=== PATIENT | male | born 1965 | race Asian ===

== ENCOUNTER → 2024-02-05 15:30 | Outpatient (REF) | payer MEDICAID, SELFPAY ==
[2024-02-05 12:13] LABS: % Basophils 0.9 % (0-2); % Eosinophils 8.2 % (0-6); % Immature Granulocytes 0.2 % (0-0.5); % Lymphocytes 21.5 % (20.5-51.1); % Monocytes 5.9 % (1.7-9.3); % Neutrophils 63.3 % (42.2-75.2); Absolute Basophils 0.1 10^3/uL (0-0.2); Absolute Eosinophils 0.5 10^3/uL (0-0.7); Absolute Lymphocytes 1.4 10^3/uL (1.2-3.4); Absolute Monocytes 0.4 10^3/uL (0.1-0.6); Absolute Neutrophils 4.2 10^3/uL (1.4-6.5); Hematocrit 21.7 % (39.0-52.0); Hemoglobin 7.5 g/dL (13.0-18.0); Mean Corp Hgb Conc. 34.6 g/dL (33.0-37.0); Mean Corpuscular Hgb 29.2 pg (27.0-31.0); Mean Corpuscular Volume 84.4 fL (80.0-94.0); Mean Platelet Volume 9.4 fL (7.4-10.4); Platelet Count 251 10^3/uL (130-400); Red Blood Cell Count 2.57 10^6/uL (4.70-6.10); Red Cell Dist. Width 13.8 % (11.5-14.5); White Blood Cell Count 6.6 10^3/uL (4.8-10.8)
== END ==
LOC: OIDL 15:30
PROVIDERS: ATTENDING PHYSICIAN Internal Medicine Hematology & Oncology
DX: D63.1 Anemia in chronic kidney disease (principal)
CPT/HCPCS: 85025

== ENCOUNTER 2024-12-11 14:04 | Emergency (ER) | payer OTHER, SELFPAY ==
[2024-12-11] VITALS (7 sets, daily range): BP systolic 122–140; BP diastolic 59–74
[2024-12-11 18:02] LABS: Hematocrit 23.5 % (39.0-52.0); Hemoglobin 7.9 g/dL (13.0-18.0); Mean Corp Hgb Conc. 33.6 g/dL (33.0-37.0); Mean Corpuscular Volume 90.7 fL (80.0-94.0); Nucleated Red Blood Cells % 0 % (-); Platelet Count 170 10^3/uL (130-400); Red Cell Dist. Width 11.9 % (11.5-14.5)
[2024-12-11 18:19] LABS: ALT (SGPT) 16 U/L (0-50); AST (SGOT) 17 U/L (17-59); Albumin 3.6 g/dl (3.5-5.0); Alkaline Phosphatase 83 U/L (38-126); Blood Urea Nitrogen 100 mg/dl (9-20); Calcium 7.6 mg/dl (8.4-10.2); Carbon Dioxide 28 mmol/L (22-30); Chloride 100 mmol/L (98-107); Glucose 255 mg/dl (70-99); Potassium 4.8 mmol/L (3.5-5.1); Sodium 137 mmol/L (135-145); Total Protein 6.3 g/dl (6.3-8.2); eGFR 8.34
--- NOTE | 2024-12-11 20:22 | ED.GENMED ---
History of Present Illness
General
Chief Complaint: Abnormal Lab Value
Source: patient
Exam Limitations: none
Time Seen by Provider: 12/11/24 17:16
History of Present Illness
History of Present Illness:
59-year-old male presents from [facility] for initiation of dialysis treatment. Patient limited historian. No other history obtained from the patient. He does deny any pain
Phy Exam
Physical Exam
Physical Exam:
General: Well-appearing male no acute respiratory distress
HEENT: Normal cephalic atraumatic
Extremities: AV graft noted left upper extremity with palpable thrill surgical incisions appear well with intact skin adhesiveNo edema in the legs
Course
Orders/Labs/Results
Orders:
Orders
12/11/24 17:57
Complete Blood Count/With Diff Urgent
Comprehensive Metabolic Panel Urgent
Abnormal Lab Results
12/11/24
17:57
RBC 2.59 L 10^6/uL
(4.70-6.10)
Hgb 7.9 L g/dL
(13.0-18.0)
Hct 23.5 L %
(39.0-52.0)
Eosinophils % 8.0 H %
(0-6)
BUN 100 H mg/dl
(9-20)
Creatinine 7.0 H* mg/dL
(0.7-1.3)
Glucose 255 H mg/dl
(70-99)
Calcium 7.6 L mg/dl
(8.4-10.2)
Total Bilirubin 0.1 L mg/dl
(0.2-1.3)
12/11/24 17:57
12/11/24 17:57
Vital Signs
Initial and Last Documented VS:
Initial Vital Signs
Temp Pulse Resp BP Pulse Ox
98.3 F 79 18 123/59 100
12/11/24 14:09 12/11/24 14:09 12/11/24 14:09 12/11/24 14:09 12/11/24 14:09
Last Documented Vital Signs
Temp Pulse Resp BP Pulse Ox
98.3 F 80 15 134/65 95
12/11/24 14:09 12/11/24 18:30 12/11/24 18:30 12/11/24 18:00 12/11/24 18:30
MDM/Problems Addressed
Differential Diagnosis Includes:
Patient sent here for initiation of hemodialysis. He has never been here before. I discussed with nephrology. Hemodialysis is currently not available as the schedule is for and the patient will not able to have HD this weekend.
Reached out to the patient's primary p d driver
*Pulse Oximetry
SaO2: 95
Oxygen Mode of Delivery: Room air
Patient hypoxic: no
*Critical Care Note
Total Time (30-74mins, 75-104mins- exclusive of procedures): Not Applicable
Update Note
Update Note:
Multiple phone calls between the patient's mother, sister two [facility] facilities ([place] and [facility] [place]) and the patient's primary p d driver as well as a discussion with our p d driver here occurred. Patient sent here from [facility]
[place] as they are unable to provide the first hemodialysis service. The patient is stable here with stable vital signs. There is no hemodialysis availability for this patient over the next 2 days in the weekend in general. Due to
unavailability of service I spoke with the patient's primary p d driver who has privileges at [facility]. I also spoke to transfer center at [facility] and ultimately the accepting physician, Dr. Santos who has accepted the
patient. A bed is available. I obtained transfer consent via telephone by the patient's sister Ana.
ED Attending Note
-
Portions of this chart may have been created with voice recognition software.� Occasional wrong word or��sound alike� substitutions may have occurred due to the inherent limitations of voice recognition software.
Discharge Plan
Departure
Patient Disposition: Acute Care Hospital
Date of Disposition: 12/11/24
Time of Disposition: 20:28
Discharge Problem:
Acute renal failure
Referrals:
Sagrario Nagel MD [Family Provider]
Hospital Transfer
Other hospital: [facility] [place]
I certify that the patient requires transfer: Yes
Discussed case with accepting physician: Danielle
Reason for transfer: availability of service
Interventions
Interventions:
*Risk Screen - Suicide Last Done: 12/11/24 14:14
*General Assessment Last Done: 12/11/24 18:20
*Neglect/Abuse Screening Last Done: 12/11/24 18:20
*ED COVID-19 Vaccine History Last Done: 12/11/24 18:20
*ED Influenza Vaccine History Last Done: 12/11/24 18:20
Discharge Date and Time
Print Language: NAURUAN
== END 2024-12-11 22:40 | disposition short-term general hospital (02) ==
LOC: EMR 14:04
PROVIDERS: Physician Assistant; EMERGENCY PHYSICIAN Emergency Medicine; FAMILY PHYSICIAN Internal Medicine
DX: N17.9 Acute kidney failure, unspecified (principal); Z99.2 Dependence on renal dialysis
CPT/HCPCS: 99283; 80053; 85025

== ENCOUNTER 2024-12-18 23:22 | Inpatient (IN) | payer OTHER, SELFPAY ==
[2024-12-18 21:39] VITALS: BP 147/71
[2024-12-18 21:59] VITALS: BMI 23.7
--- NOTE | 2024-12-18 22:11 | ED.GENMED ---
History of Present Illness
General
Chief Complaint: Abnormal Lab Value
Source: patient, ambulance crew and skilled nursing records
Exam Limitations: none
Time Seen by Provider: 12/18/24 22:06
Nursing documentation reviewed up to this point in time: agreed with
History of Present Illness
History of Present Illness:
59-year-old male with history of HTN, HLD, IDDM, anemia, CHF, ESRD on dialysis presents from [facility] for low hemoglobin.
Pt denies CP, SOB, abdominal pain, dizziness.
Past History
Past History
ED Past Medical History: CHF, GERD, HTN, Hypercholesterolemia, NIDDM, Renal failure (ESRD on dialysis -W-) and Other (Anemia)
ED Past Surgical History: Other (Dialysis catheter left upper)
Review of Systems
Review of Systems
Allergies reviewed?: Yes
All Other Systems: ROS reviewed and negative except as documented in HPI and ROS
Constitutional: Denies fever or fatigue
Respiratory: Denies trouble breathing
Cardiac: Denies chest pain
ABD/GI: Denies abdominal pain, nausea, vomiting, diarrhea or anorexia
Musculoskeletal: Denies edema
Skin: Reports other (Dialysis AV fistula left upper arm)
Neurological: Denies dizzy
Phy Exam
Physical Exam
Physical Exam:
GENERAL: No acute distress. A&Ox3.
CONSTITUTIONAL: Afebrile.
EYES: clear, conjunctivae normal
ENMT: moist mucus membranes, Pharynx nl
RESPIRATORY: Regular respirations, nonlabored, lungs clear.
CARDIOVASCULAR: Regular rate and rhythm, + murmur, no rubs.
GI: Soft, nontender, normal BS
MUSCULOSKELETAL: Moves with ease. Well perfused.
SKIN: Warm, dry, AV graft left upper extremity
PSYCH: Normal mood and affect. Well kept, interactive and appropriate
NEUROLOGIC: Awake, alert and oriented. No focal neurological deficits
Course
Orders/Labs/Results
Orders:
Orders
12/18/24 21:49
Type+Screen Urgent
Complete Blood Count/With Diff Urgent
Comprehensive Metabolic Panel Urgent
Folate Urgent
Iron Urgent
Total Iron Binding Urgent
Comment: ADD ON
Vitamin B12 Urgent
Comment: ADD ON
12/18/24 22:36
* Blood Bank Products Routine
Blood Bank Products: *Packed RBC Leuko (PRBC's
Quantity: 1
Transfuse Today: Yes
Reason: Anemia
IV Insert/Care/Rem.- Treatment PRN
12/18/24 23:08
Admit/Transfer Patient As Directed
Co-Sign Provider:
Level of Care: Inpatient admission
Assign to:: Medical/Surgical
Physician / Group: billie
Diagnosis: anemia
Reason for Hospitalization: anemia
Expected length of stay greater than two midnights?: Yes
ELOS- Estimated Length of Stay in days: 3
I certify the patient meets the requirements for IP care: Yes
PRN Pain Medication Management As Directed
May give lesser potent ordered pain med per pt: Yes
preference::
Protocol:: Medication orders for pain may be administered in a
manner that supports deferring to patient preference
when the pt is:
- Requesting an ordered lesser potent pain medication.
Least to most potent pain medications are defined
as: acetaminophen < NSAID < tramadol < opioids
(morphine, oxycodone, hydromorphone).
- Requesting a lesser dose of the same medication IF
ORDERED.
- Requesting a less intrusive route of administration
if both routes are prescribed by the provider (PO <
IV).
12/18/24 23:10
Code Status As Directed
Resuscitation Status: Full Code
12/18/24 23:13
Add On- LAB Stat
Tests Added?: iron, b12, TIBC,folate
11/01/25 02:25
Acetaminophen [Tylenol] 650 mg PO Q4HPRN PRN
Bisacodyl [Dulcolax] 10 mg RECTAL [id number] PRN
Dextrose 50%-Water [Dextrose 50% Syringe] 12.5 grams IV [id number] PRN
Docusate W/Senna [Senokot-S] 1 tablet PO BIDPRN PRN
Glucagon [GlucaGen] 1 mg IM PRN PRN
Polyethylene Glycol Powder [Miralax] 17 grams PO DAILYPRN PRN
12/19/24 02:25
Consult Notification Routine
Specialty to Notify: Nephrology
NEPHROLOGY CONSULT Routine
Consulting Provider: Rex Virk
Was physician already notified: No
Reason for consult: ESRD on Dialysis
Activity As Directed
Activity Level: As Tolerated
Bedside Glucose Monitoring As Directed
Frequency: AC&HS
Additional Instructions:: Change to q6h if pt on TPN, tube feeding or not eating
Intake/ Output As Directed
Frequency: Per unit guidelines
Pneumatic Compression Sleeves As Directed
Type: Knee high
Vital Signs As Directed
Frequency: Per unit guidelines
Weight As Directed
Frequency: Daily
DX Deep Vein Thrombosis Video Routine
12/19/24 Breakfast
2000 calorie (17 carb) Diabetic
Basic Metabolic Panel IN AM
Complete Blood Count/No Diff IN AM
Glycohemoglobin (HgbA1c) IN AM
12/19/24 07:30
Insulin Aspart Corrective Low [Novolog Flexpen-Low Resistance] See Protocol SC AC
12/19/24 08:00
Aspirin Chewable [Low Strength Aspirin] 81 mg PO DAILY
Atorvastatin [Lipitor] 40 mg PO DAILY
Carvedilol [Coreg] 25 mg PO BID
Clonidine [Catapres] 0.2 mg PO DAILY
Clopidogrel Bisulfate [Plavix] 75 mg PO DAILY
Dapagliflozin [Farxiga] 10 mg PO DAILY
FOLic ACID [Folvite] 1 mg PO DAILY
Ferrous Sulfate [Feosol] 325 mg PO DAILY
Furosemide [Lasix] 20 mg PO DAILY
Losartan [Cozaar] 25 mg PO DAILY
NIFEdipine EXTENDED RELEASE [Procardia Xl (Extended Release)] 60 mg PO BID
Pantoprazole [Protonix] 40 mg PO DAILY
Sodium Bicarbonate 1,350 mg PO BID
12/20/24 06:00
Basic Metabolic Panel IN AM
Complete Blood Count/No Diff IN AM
12/21/24 06:00
Basic Metabolic Panel IN AM
Complete Blood Count/No Diff IN AM
12/22/24 06:00
Basic Metabolic Panel IN AM
Complete Blood Count/No Diff IN AM
Abnormal Lab Results
12/18/24
21:49
RBC 2.19 L 10^6/uL
(4.70-6.10)
Hgb 6.7 L* g/dL
(13.0-18.0)
Hct 19.5 L* %
(39.0-52.0)
Eosinophils % 6.8 H %
(0-6)
Sodium 130 L mmol/L
(135-145)
BUN 48 H mg/dl
(9-20)
Creatinine 3.6 H mg/dL
(0.7-1.3)
Glucose 176 H mg/dl
(70-99)
Calcium 7.6 L mg/dl
(8.4-10.2)
Iron 216 H ug/dl
(49-181)
TIBC 195 L ug/dl
(261-462)
% Saturation 110 H %
(20-50)
Total Protein 6.1 L g/dl
(6.3-8.2)
Albumin 3.3 L g/dl
(3.5-5.0)
Folate > 20.0 H ng/ml
(2.76-20)
Crossmatch IS Only See Detail
12/18/24 21:49
12/18/24 21:49
Vital Signs
Initial and Last Documented VS:
Initial Vital Signs
Temp Pulse Resp BP Pulse Ox
98.5 F 80 18 147/71 99
12/18/24 21:39 12/18/24 21:39 12/18/24 21:39 12/18/24 21:39 12/18/24 21:39
Last Documented Vital Signs
Temp Pulse Resp BP Pulse Ox
98.6 F 77 16 145/69 98
12/19/24 02:00 12/19/24 02:00 12/19/24 01:00 12/19/24 02:00 12/19/24 02:00
MDM/Problems Addressed
Differential Diagnosis Includes:
GI bleed, anemia of chronic disease
MDM/Problems Addressed:
59-year-old male with history of HTN, HLD, IDDM, anemia, CHF, ESRD on dialysis M-- states he was dialyzed today, presents from [facility] for low hemoglobin.
Pt denies CP, SOB, abdominal pain, dizziness.
CBC: Hgb 6.7
CMP: Consistent with his ESRD
Stool is hematest negative
Case discussed with Dr. Solo, who agrees with admission, transfuse
Hospitalist notified of admission.
*Pulse Oximetry
SaO2: 99
Oxygen Mode of Delivery: Room air
Patient hypoxic: no
*Critical Care Note
Total Time (30-74mins, 75-104mins- exclusive of procedures): Not Applicable
ED Attending Note
-
Portions of this chart may have been created with voice recognition software.� Occasional wrong word or��sound alike� substitutions may have occurred due to the inherent limitations of voice recognition software.
Discharge Plan
Departure
Patient Disposition: Admit
Date of Disposition: 12/18/24
Time of Disposition: 22:34
Admit to: Med/Surg
Presentation/result/management discussed w/ accepting MD/DO: Hospitalist
Condition: Fair
Discharge Problem:
Acute on chronic anemia, ESRD (end stage renal disease) on dialysis
Interventions
Interventions:
*Risk Screen - Suicide Last Done: 12/19/24 02:37
*General Assessment Last Done: 12/18/24 21:39
*Neglect/Abuse Screening Last Done: 12/18/24 21:39
*ED- Fall Risk Assessment Last Done: 12/18/24 21:59
*ED COVID-19 Vaccine History Last Done: 12/19/24 02:37
*ED Influenza Vaccine History Last Done: 12/18/24 21:59
*Nursing Disposition Last Done: 12/19/24 02:00
Discharge Date and Time
Discharge Date/Time: 12/19/24 02:10
[2024-12-18 22:18] LABS: Hematocrit 19.5 % (39.0-52.0); Hemoglobin 6.7 g/dL (13.0-18.0); Mean Corp Hgb Conc. 34.4 g/dL (33.0-37.0); Mean Corpuscular Volume 89.0 fL (80.0-94.0); Nucleated Red Blood Cells % 0 % (-); Platelet Count 165 10^3/uL (130-400); Red Cell Dist. Width 11.9 % (11.5-14.5)
[2024-12-18 22:21] LABS: ALT (SGPT) 16 U/L (0-50); AST (SGOT) 19 U/L (17-59); Albumin 3.3 g/dl (3.5-5.0); Alkaline Phosphatase 80 U/L (38-126); Blood Urea Nitrogen 48 mg/dl (9-20); Calcium 7.6 mg/dl (8.4-10.2); Carbon Dioxide 28 mmol/L (22-30); Chloride 98 mmol/L (98-107); Estimated Creatinine Clearance 20 ml/min; Glucose 176 mg/dl (70-99); Potassium 4.1 mmol/L (3.5-5.1); Sodium 130 mmol/L (135-145); Total Protein 6.1 g/dl (6.3-8.2); eGFR 18.52
--- NOTE | 2024-12-18 22:37 | HPS.HSE ---
Addendum entered and electronically signed by Esequiel El DO 12/18/24 23:37:
Patient seen and examined independently. Agree with findings and plan as set forth by ROME Casanova.
Patient is a 59y M with PMH significant for ESRD on HD, hypertension and CHF who presents to ED after he was noted to have abnormal labs / worsened anemia at HD today. Patient denies any subjective complaints including dyspnea, chest pain,
lightheadedness or dizziness. He denies any evident blood loss including bloody or black stools, hematemesis or hemoptysis.
Patient has known iron deficiency and receives iron infusions on HD at times.
Ass:
Acute on Chronic Anemia
Anemia of CKD
Iron Deficiency Anemia
ESRD on HD
Chronic HFrEF
ASCVD / Prior CVA
DM-II
Benign Hypertension
THEA
Plan:
Admit for further evaluation and treatment.
? baseline Hgb with prior values here from 7 - 11 (but mostly 7-8)
Transfuse 1 unit of PRBCs for now.
Follow for changes in H&H.
Follow for any evident blood loss.
Nephrology evaluation for any HD needs during stay.
Continue usual outpatient med regimen.
Original Note:
Family Physician
-
Family Physician:
Chief Complaint
-
anemia
History of Present Illness
59-year-old male with history of HTN, HLD, IDDM, anemia, CHF, ESRD on dialysis presents from [facility] for low hemoglobin. patient complained of DAVIS and dizzy. denied chest pain, sob. denied fever, chills, cough,congestion. denied
abdominal pain,n,v,d. denied dysuria or hematuria. patient usually gets iron infusion as well as Aranesp with Dialysis.
upon arrival he was noted to have hgb of 6.7,. transfusing with one unit of blood. admitting for further management.
Medical History
Past Medical History
Past Medical History: Reports Other
Additional Past Medical History:
CVA, hyperlipidemia, hypertension, anemia, type 2 diabetes, GERD, systolic heart failure, end-stage renal disease, hypoosmolality and hyponatremia, pneumonia, cellulitis, obstructive sleep apnea, constipation, insomnia, hypertension vitamin B12
deficiency anemia
Past Surgical History: Reports Other
Additional Past Surgical History:
Cataract surgery
Social History
Tobacco: Non-smoker
Alcohol: None
Drug: None
Living: Long-Term
Family History
Family History: Not pertinent
Allergies / Home Medications
Allergies reflects when Allergies were last updated in [facility].
Home Medications with original date entered in [facility]
Allergy/Medication List:
Allergies
Allergy/AdvReac Type Severity Reaction Status Date / Time
Penicillins Allergy Unknown Verified 12/11/24 14:11
Home Medications
acetaminophen 325 mg tablet 325 mg PO Q6H PRN pain 12/18/24
aspirin 81 mg chewable tablet 81 mg PO DAILY 12/18/24
atorvastatin 40 mg tablet 40 mg PO DAILY 12/18/24
carvedilol 25 mg tablet 25 mg PO BID 12/18/24
clonidine HCl 0.2 mg tablet 0.2 mg PO DAILY 12/18/24
clopidogrel 75 mg tablet 75 mg PO DAILY 12/18/24
empagliflozin 10 mg tablet (Jardiance) 10 mg PO DAILY 12/18/24
ferrous sulfate 325 mg (65 mg iron) tablet 325 mg PO DAILY 12/18/24
folic acid 1 mg tablet 1 mg PO DAILY 12/18/24
furosemide 20 mg tablet 20 mg PO DAILY 12/18/24
glipizide 2.5 mg tablet 2.5 mg PO DAILY 12/18/24
losartan 100 mg tablet 25 mg PO DAILY 12/18/24
nifedipine 60 mg tablet,extended release 24 hr 60 mg PO BID 12/18/24
pantoprazole 40 mg tablet,delayed release 40 mg PO DAILY 12/18/24
sodium bicarbonate 650 mg tablet 1,350 mg PO BID 12/18/24
sorbitol 70 % solution 30 ml PO DAILY PRN constipation 12/18/24
Review of Systems
-
Constitutional: Reports No Symptoms
EENT: Reports No Symptoms
Respiratory: Reports No Symptoms
Cardiac: Reports No Symptoms
Abdomen/GI: Reports No Symptoms
: Reports No Symptoms
Musculoskeletal: Reports No Symptoms
Skin: Reports No Symptoms
Neurological: Reports Dizzy and Headache
Endocrine: Reports No Symptoms
Hematologic/Lymphatic: Reports No Symptoms
Psych: Reports No Symptoms
Physical Exam
Vital Signs
Vital Signs
Temp Pulse Resp BP Pulse Ox
98.5 F 80 18 147/71 99
12/18/24 21:39 12/18/24 21:39 12/18/24 21:39 12/18/24 21:39 12/18/24 22:13
Physical Exam
General: Well Developed, Well Nourished and No Apparent Distress
HEENT: NormoCephalic, Moist mucous membranes and Atraumatic
Respiratory: Clear
Cardiac: S1/S2 and Regular Rhythm; No Murmur or Rub
GI: Soft, Non Tender, Non Distended and Normal Bowel Sounds; No Organomegaly
Rectal: Deferred by Provider
Musculoskeletal: No Clubbing, No Cyanosis and No Edema
Skin: No Rash
Neuro: AO x 3 and Nonfocal/grossly intact
Psych: Calm
Laboratory Results
-
12/18/24 21:49
12/18/24 21:49
Laboratory Results
Total Bilirubin 0.3 mg/dl (0.2-1.3) 12/18/24 21:49
AST 19 U/L (17-59) 12/18/24 21:49
ALT 16 U/L (0-50) 12/18/24 21:49
Alkaline Phosphatase 80 U/L (38-126) 12/18/24 21:49
Data Reviewed
-
Lab Data: Labs Reviewed by me
Impression/Plan
-
#acute on chronic anemia likely from chronic kidney disease
# Iron deficiency anemia
-hgb 6.7, transfusing with one one unit of blood
-treg hgb in am
-stool heme negative
-Ferrous sulfate continued
-obtain Iron, b12, ferritin, folate and TIBC
#ESRD on dialysis
-dialysis M,W,F
-nephrology consulted.
#History of CVA
- On aspirin and Plavix
# Hyperlipidemia
- Atorvastatin continued
# Essential hypertension
# History of CHF, not in acute exacerbation
- Coreg, clonidine continued
- Furosemide continued, strict YAMILET, daily weight
- Losartan, nifedipine continued
# GERD
- PPI continued
# History of hyponatremia
- Sodium bicarb continue
# Type 2 diabetes
- Jardiance continued sliding scale, CHO diet
- Hold glipizide
#hxt of suicidal
-no active thoughts
# DVT prophylaxis
-SCDs
# CODE STATUS
-Full code
[2024-12-18 23:45] LABS: Iron 216 ug/dl (49-181)
[2024-12-18 23:47] VITALS: BP 178/72
[2024-12-18 23:54] LABS: Total Iron Binding Capacity 195 ug/dl (261-462)
[2024-12-19] VITALS (8 sets, daily range): BP systolic 108–173; BP diastolic 60–78; BMI 22.5
[2024-12-19 00:52] LABS: Folate > 20.0 ng/ml (2.76-20); Vitamin B12 605 pg/ml (239-931)
--- NOTE | 2024-12-19 03:09 | PTCARENOTE ---
Pt arrived via stretcher and ambulated to bedside. Blood transfusing through 20 gauge in the right AC. Pt oriented to unit. Side rails up, bed set in lowest position, call mayberry within reach. Will continue plan of care.
[2024-12-19 07:45] LABS: Hematocrit 22.4 % (39.0-52.0); Hemoglobin 7.8 g/dL (13.0-18.0); Mean Corp Hgb Conc. 34.8 g/dL (33.0-37.0); Mean Corpuscular Volume 90.3 fL (80.0-94.0); Platelet Count 171 10^3/uL (130-400); Red Cell Dist. Width 11.7 % (11.5-14.5)
[2024-12-19 08:09] LABS: Blood Urea Nitrogen 51 mg/dl (9-20); Calcium 7.6 mg/dl (8.4-10.2); Carbon Dioxide 28 mmol/L (22-30); Chloride 102 mmol/L (98-107); Estimated Creatinine Clearance 17 ml/min; Glucose 170 mg/dl (70-99); Potassium 4.5 mmol/L (3.5-5.1); Sodium 136 mmol/L (135-145); eGFR 15.40
[2024-12-19] MEDS: FOLVITE 1 MG PO (08:29)
[2024-12-19] MEDS: LIPITOR 40 MG PO (08:29)
[2024-12-19] MEDS: LOW STRENGTH ASPIRIN 81 MG PO (08:29)
[2024-12-19] MEDS: TYLENOL 650 MG PO (08:29)
[2024-12-19] MEDS: FARXIGA 10 MG PO (08:29)
[2024-12-19] MEDS: LASIX 20 MG PO (08:29)
[2024-12-19] MEDS: COZAAR 25 MG PO (08:29)
[2024-12-19] MEDS: PLAVIX 75 MG PO (08:29)
[2024-12-19] MEDS: FEOSOL 325 MG PO (08:30)
[2024-12-19] MEDS: CATAPRES 0.2 MG PO (08:30)
[2024-12-19] MEDS: PROTONIX 40 MG PO (08:30)
[2024-12-19] MEDS: COREG 25 MG PO ×2 (08:30→21:57)
[2024-12-19] MEDS: SODIUM BICARBONATE 1350 MG PO (08:30)
[2024-12-19] MEDS: PROCARDIA XL (EXTENDED RELEASE) 60 MG PO ×2 (08:31→21:55)
[2024-12-19 08:34] LABS: Glucose - Point of Care 137 mg/dl (70-99)
[2024-12-19] MEDS: NOVOLOG FLEXPEN-LOW RESISTANCE SC (08:34)
--- NOTE | 2024-12-19 08:34 | W.PN.HOSP.TC ---
Today's Communication/Plan
-
See plan
Assessment / Plan
Assessment / Plan
Physical Exam
General: Well Developed, Well Nourished and No Apparent Distress
HEENT: Normocephalic, Moist mucous membranes and Atraumatic
Respiratory: Clear to Auscultation Bilaterally
Cardiac: S1/S2 and Regular Rhythm
GI: Soft, Non Tender, Non Distended and Normal Bowel Sounds
Musculoskeletal: No Cyanosis and No Edema
Skin: Warm. Dry.
Neuro: AAO x 3 and Nonfocal/grossly intact
Psych: Calm
Assessment/Plan
59-year-old male with history of HTN, HLD, IDDM, anemia, CHF, ESRD on dialysis presents from [facility] for low hemoglobin. Patient complained of headache and dizziness. He denied any chest pain, sob, fever, chills, cough, congestion.
He denied abdominal pain,n,v,d. He denied dysuria or hematuria. Patient usually gets iron infusion as well as Aranesp with Dialysis. upon arrival he was noted to have hgb of 6.7,. transfused with one unit of blood. admitting for further management.
#acute on chronic anemia likely from chronic kidney disease
# Iron deficiency anemia
-hgb 6.7, transfusing with one one unit of blood
-treg hgb in am
-stool heme negative
-Ferrous sulfate continued
-obtained Iron, b12, ferritin, folate and TIBC
#ESRD on dialysis
-dialysis M,W,F
-nephrology consulted
#History of CVA
- On aspirin and Plavix
# Hyperlipidemia
- Atorvastatin continued
# Essential hypertension
# Chronic HFrEF
- Coreg, clonidine continued
- Furosemide continued, strict YAMILET, daily weight
- Losartan, nifedipine continued
# GERD
- PPI continued
# History of hyponatremia
- Sodium bicarb continue
# Type 2 diabetes mellitus
- Jardiance continued sliding scale, CHO diet
- Hold glipizide
#THEA
#hxt of suicidal
-no active thoughts
# DVT prophylaxis
-SCDs
# CODE STATUS
-Full code
Anticipated Discharge: 24 - 48 hours
Subjective/Interval History
-
Date of Service: December 19, 2024
Patient was seen and examined. He reported that his dizziness has resolved. He denied any new symptoms or complaints.
Objective Data
-
Labs:
Laboratory Results
12/18/24 12/19/24
21:49 07:17
WBC 6.1 6.7
Hgb 6.7 L* 7.8 L
Hct 19.5 L* 22.4 L
Plt Count 165 171
Sodium 130 L 136
Potassium 4.1 4.5
Chloride 98 102
Carbon Dioxide 28 28
BUN 48 H 51 H
Creatinine 3.6 H 4.2 H*
Glucose 176 H 170 H
Calcium 7.6 L 7.6 L
Total Bilirubin 0.3
AST 19
ALT 16
Alkaline Phosphatase 80
Vital Signs:
Vital Signs
Temp Pulse Resp BP Pulse Ox
99.0 F 76 18 141/67 100
12/19/24 07:00 12/19/24 07:00 12/19/24 07:00 12/19/24 07:00 12/19/24 07:00
I&O
12/18/24 12/19/24 12/20/24
06:59 06:59 05:59
Intake Total 250 / 250
Balance 250 / 250
[2024-12-19 08:42] LABS: Glycohemoglobin (HgbA1c) 6.4 % (4.0-5.9)
--- NOTE | 2024-12-19 10:28 | PTCARENOTE ---
Patient is AAOx3 pleasant flat affect and forgetful at times. PT denied any pain at this time. PT with temp 99 recheced for 97.6. HG yesterday was 6.7 and was 7.8 today. MD notes state his baseline ranges 7-8. 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 lungs
clear in all trinh anterior and posterior no SOB no BOLAND with activity noted. pt denies any CP sob or palpitations. Abd soft nt nd +BS pt stated last Bm was yesterday no nvd. PT voids in bathroom clear. PT with HD MWF and has bruit thrill in av
fistual LUE with limb restirciton noted. SCDS at bedside and not one at the moment. SKin with scattered scars and bruises. PT currently resting in bed. fall risks sign on door. call mayberry in hand. pt agreed to call me before getting out of bed. he is
a minimal one assist with walker.
--- NOTE | 2024-12-19 10:32 | PTCARENOTE ---
IS brought to bed. instructions given. return demonstrated how to do it
[2024-12-19 12:10] LABS: Glucose - Point of Care 251 mg/dl (70-99)
[2024-12-19] MEDS: NOVOLOG FLEXPEN-LOW RESISTANCE 3 UNITS SC (13:37)
--- NOTE | 2024-12-19 14:16 | W.CON.NEPH ---
Consultation
-
Date/Time Consultation Requested: 12/19/2024 12 PM
Date/Time Consultation Performed: 12/19/2024 2 PM
Requesting Provider: Dr. El
Performing Provider: Dr. Virk
Reason for Consultation: ESRD
Medical History
-
Chief Complaint: Anemia
History of Present Illness:
This is a 59-year-old gentleman who has end-stage renal disease presumably with initiation of dialysis within the last month according to his report. He also has an AV fistula in the left upper arm for which dialysis is used and he has stated
that this is also a recent surgery done at [facility]. He says that he has been homeless for the last 10 years. He has had medical care performed mostly at [facility]. He says that not long ago he had developed significant edema
with scrotal edema and that workup at 1 point during that timeframe he was living out of the van in the [facility] parking lot on . Most recently he was admitted to [facility]. He went to dialysis on Saturday which was without issue. Blood work
however had shown a low hemoglobin and he was sent to the emergency room. It was found to be 6.7 here. He received packed red blood cells. We are asked to assist with management of his ESRD.
Past Medical History
ESRD
Left AV fistula
Left forearm skin graft
Stroke
Hyperlipidemia
Hypertension
Diabetes mellitus type 2
Reflux
Sleep apnea
Anemia
Cataract surgery
Social History
Tobacco: Former Smoker
Alcohol: None
Family History
Family History: Not Pertinent
Allergies / Home Medications
Allergy/AdvReac Type Severity Reaction Status Date / Time
Penicillins Allergy Unknown Verified 12/11/24 14:11
�Medication �Instructions �Recorded �Confirmed �Type
acetaminophen 325 mg tablet 325 mg PO Q6H PRN pain 12/18/24 12/18/24 History
aspirin 81 mg chewable tablet 81 mg PO DAILY Blood Clot 12/18/24 12/18/24 History
Prevention/Tx
atorvastatin 40 mg tablet 40 mg PO DAILY High Cholesterol 12/18/24 12/18/24 History
carvedilol 25 mg tablet 25 mg PO BID Blood Pressure 12/18/24 12/18/24 History
clonidine HCl 0.2 mg tablet 0.2 mg PO DAILY Heart 12/18/24 12/18/24 History
Disease/Condition
clopidogrel 75 mg tablet 75 mg PO DAILY Blood Clot 12/18/24 12/18/24 History
Prevention/Tx
empagliflozin 10 mg tablet 10 mg PO DAILY Diabetes 12/18/24 12/18/24 History
(Jardiance)
ferrous sulfate 325 mg (65 mg 325 mg PO DAILY Supplement 12/18/24 12/18/24 History
iron) tablet
folic acid 1 mg tablet 1 mg PO DAILY Supplement 12/18/24 12/18/24 History
furosemide 20 mg tablet 20 mg PO DAILY Fluid 12/18/24 12/18/24 History
Retention/Swelling
glipizide 2.5 mg tablet 2.5 mg PO DAILY Diabetes 12/18/24 12/18/24 History
losartan 100 mg tablet 25 mg PO DAILY Blood Pressure 12/18/24 12/18/24 History
nifedipine 60 mg tablet,extended 60 mg PO BID Heart 12/18/24 12/18/24 History
release 24 hr Disease/Condition
pantoprazole 40 mg tablet,delayed 40 mg PO DAILY GERD 12/18/24 12/18/24 History
release
sodium bicarbonate 650 mg tablet 1,350 mg PO BID ALKALINIZER 12/18/24 12/18/24 History
sorbitol 70 % solution 30 ml PO DAILY PRN constipation 12/18/24 12/18/24 History
Review of Systems
-
No chest pain or shortness of breath
All other systems: Negative unless noted
Physical Exam
Vital Signs
Vital Signs
Temp Pulse Resp BP Pulse Ox
97.6 F 76 18 141/67 100
12/19/24 10:33 12/19/24 07:00 12/19/24 07:00 12/19/24 07:00 12/19/24 07:00
Lab Results
WBC 6.7 10^3/uL (4.8-10.8) 12/19/24 07:17
RBC 2.48 10^6/uL (4.70-6.10) L 12/19/24 07:17
Hgb 7.8 g/dL (13.0-18.0) L 12/19/24 07:17
Hct 22.4 % (39.0-52.0) L 12/19/24 07:17
Plt Count 171 10^3/uL (130-400) 12/19/24 07:17
Sodium 136 mmol/L (135-145) 12/19/24 07:17
Potassium 4.5 mmol/L (3.5-5.1) 12/19/24 07:17
Chloride 102 mmol/L (98-107) 12/19/24 07:17
Carbon Dioxide 28 mmol/L (22-30) 12/19/24 07:17
BUN 51 mg/dl (9-20) H 12/19/24 07:17
Creatinine 4.2 mg/dL (0.7-1.3) H* 12/19/24 07:17
eGFR 15.40 12/19/24 07:17
Glucose 170 mg/dl (70-99) H 12/19/24 07:17
Calcium 7.6 mg/dl (8.4-10.2) L 12/19/24 07:17
Albumin 3.3 g/dl (3.5-5.0) L 12/18/24 21:49
Laboratory Tests
12/11/24 12/18/24
17:57 21:49
Hgb 7.9 L 6.7 L*
Potassium 4.8
Physical Exam
Patient is awake alert oriented and in no distress. Mood and affect were pleasant, insight and judgment were good. Pupils are equal round and reactive to light, extraocular movements are intact, sclera were anicteric. Hearing was normal, ears and
nose are intact. Oropharynx was clear. Neck was supple with trachea midline and no thyromegaly. Heart was regular rate and rhythm without rubs. Lower extremities without edema. Lungs were clear to auscultation bilaterally and with normal
excursion. Abdomen was soft, nontender, with normal active bowel sounds, and no hepatosplenomegaly. Skin was without rash and with normal turgor. Left upper remedy AV fistula with good thrill and bruit
Data Reviewed
-
Labs: Labs Reviewed by me
Old Records: Reviewed
Assessment/Plan
-
Assessment
ESRD
Anemia acute
Hypertension
hyperlipidemia
Diabetes mellitus type 2
Metabolic acidosis
Plan
Next dialysis Saturday
Follow hemoglobin, transfuse as needed
Continue outpatient medications
Okay to continue Jardiance
Request records from [facility]
--- NOTE | 2024-12-19 14:47 | CM ---
Patient seen bedside, initial assessment completed. Patient was unsure of information as CM asked questions regarding where he is residing. Patient stated he resides at a SNF in [place] and gets HD there.
CM called [facility], spoke w/ a nursing byproducts supervisor who confirmed that patient was there but moved to the [place] location about a week and a half ago. CM called [facility], spoke w/ nursing byproducts supervisor, Rachelle, confirmed that
patient is a resident, unsure if he is short term or manager terminal. Patient is independent, uses RW. Independent w/ ADLs and personal care. Confirmed patient receives HD on M,W,F. Confirmed patient is currently working w/ physical therapy.
PCP: Bong Abel
Pharmacy: [facility]
Plan: CM to confirm if patient is senior care or short term resident. Can return to [facility] when stable
[2024-12-19 16:57] LABS: Glucose - Point of Care 172 mg/dl (70-99)
[2024-12-19] MEDS: NOVOLOG FLEXPEN-LOW RESISTANCE 1 UNITS SC (17:10)
[2024-12-19 21:26] LABS: Glucose - Point of Care 187 mg/dl (70-99)
[2024-12-19] MEDS: SODIUM BICARBONATE PO (22:19)
[2024-12-20 06:00] VITALS: BMI 23.2
[2024-12-20 07:00] VITALS: BP 146/70
[2024-12-20 07:41] LABS: Hematocrit 21.5 % (39.0-52.0); Hemoglobin 7.3 g/dL (13.0-18.0); Mean Corp Hgb Conc. 34.0 g/dL (33.0-37.0); Mean Corpuscular Volume 90.0 fL (80.0-94.0); Platelet Count 163 10^3/uL (130-400); Red Cell Dist. Width 12.0 % (11.5-14.5)
[2024-12-20 07:55] LABS: Blood Urea Nitrogen 76 mg/dl (9-20); Calcium 7.3 mg/dl (8.4-10.2); Carbon Dioxide 24 mmol/L (22-30); Chloride 106 mmol/L (98-107); Estimated Creatinine Clearance 15 ml/min; Glucose 147 mg/dl (70-99); Potassium 5.0 mmol/L (3.5-5.1); Sodium 137 mmol/L (135-145); eGFR 12.49
--- NOTE | 2024-12-20 08:04 | W.PN.HOSP.TC ---
Today's Communication/Plan
-
Dialysis tomorrow
See plan
Assessment / Plan
Assessment / Plan
Physical Exam
General: Well Developed, Well Nourished and No Apparent Distress
HEENT: Normocephalic, Moist mucous membranes and Atraumatic
Respiratory: Clear to Auscultation Bilaterally
Cardiac: S1/S2 and Regular Rhythm
GI: Soft, Non Tender, Non Distended and Normal Bowel Sounds
Musculoskeletal: No Cyanosis and No Edema
Skin: Warm. Dry.
Neuro: AAO x 3 and Nonfocal/grossly intact
Psych: Calm
Assessment/Plan
59-year-old male with history of HTN, HLD, IDDM, anemia, CHF, ESRD on dialysis presents from [facility] for low hemoglobin. Patient complained of headache and dizziness. He denied any chest pain, sob, fever, chills, cough, congestion.
He denied abdominal pain,n,v,d. He denied dysuria or hematuria. Patient usually gets iron infusion as well as Aranesp with Dialysis. upon arrival he was noted to have hgb of 6.7,. transfused with one unit of blood. admitting for further management.
#acute on chronic anemia likely from chronic kidney disease
# Iron deficiency anemia
-hgb 6.7, transfusing with one one unit of blood
-treg hgb in am
-stool heme negative, no blood in bowel movements
-Reticulocytes normal, LDH elevated
-Held Ferrous sulfate given high iron levels
-Minor chronic nosebleeds with significant Hgb drop -- unlikely -- will need outpatient ENT
-Consulted hematology since Hgb dropping again, evaluation for other etiologies besides ESRD given Hgb keeps dropping, appreciate hematology
#ESRD on dialysis
-dialysis M,W,F
-nephrology consulted
#History of CVA
- On Aspirin and Plavix
# Hyperlipidemia
- Atorvastatin continued
# Essential hypertension
# Chronic HFrEF
- Coreg, clonidine continued
- Furosemide continued, strict YAMILET, daily weight
- Losartan, nifedipine continued
# GERD
- PPI continued
# History of hyponatremia
- Sodium bicarb continue
# Type 2 diabetes mellitus
- Jardiance continued sliding scale, CHO diet
- Hold glipizide
#THEA
#hxt of suicidal
-no active thoughts
# DVT prophylaxis
-SCDs
# CODE STATUS
-Full code
Anticipated Discharge: 24 - 48 hours
Subjective/Interval History
-
Date of Service: December 20, 2024
Patient was seen and examined. He reported chronic low volume nose bleeds, denied any other symptoms or complaints.
Objective Data
-
Labs:
Laboratory Results
12/20/24
06:33
WBC 7.9
Hgb 7.3 L
Hct 21.5 L
Plt Count 163
Sodium 137
Potassium 5.0
Chloride 106
Carbon Dioxide 24
BUN 76 H
Creatinine 5.0 H*
Glucose 147 H
Calcium 7.3 L
Vital Signs:
Vital Signs
Temp Pulse Resp BP Pulse Ox
98.2 F 90 18 146/70 100
12/20/24 07:00 12/20/24 07:00 12/20/24 07:00 12/20/24 07:00 12/20/24 07:00
I&O
12/19/24 12/20/24 12/21/24
06:59 05:59 06:59
Intake Total 250 / 250 2340 / 2340
Balance 250 / 250 2340 / 2340
[2024-12-20 08:23] LABS: Albumin 3.1 g/dl (3.5-5.0)
[2024-12-20 08:26] LABS: Glucose - Point of Care 213 mg/dl (70-99)
[2024-12-20 08:52] LABS: LDH 284 U/L (120-246)
[2024-12-20] MEDS: FARXIGA 10 MG PO (09:35)
[2024-12-20] MEDS: PLAVIX 75 MG PO (09:35)
[2024-12-20] MEDS: LIPITOR 40 MG PO (09:35)
[2024-12-20] MEDS: PROTONIX 40 MG PO (09:35)
[2024-12-20] MEDS: PROCARDIA XL (EXTENDED RELEASE) 60 MG PO ×2 (09:35→20:23)
[2024-12-20] MEDS: LOW STRENGTH ASPIRIN 81 MG PO (09:35)
[2024-12-20] MEDS: FOLVITE 1 MG PO (09:35)
[2024-12-20] MEDS: SODIUM BICARBONATE 1300 MG PO ×2 (09:36→20:23)
[2024-12-20] MEDS: FEOSOL 325 MG PO (09:36)
[2024-12-20] MEDS: LASIX 20 MG PO (09:36)
[2024-12-20] MEDS: TYLENOL 650 MG PO (09:36)
[2024-12-20] MEDS: COREG 25 MG PO ×2 (09:36→20:22)
[2024-12-20] MEDS: COZAAR 25 MG PO (09:39)
[2024-12-20] MEDS: NOVOLOG FLEXPEN-LOW RESISTANCE 3 UNITS SC (09:39)
[2024-12-20] MEDS: CATAPRES 0.2 MG PO (09:39)
[2024-12-20 09:47] LABS: Reticulocyte Count 1.3 % (0.4-2.8)
[2024-12-20 11:38] LABS: Glucose - Point of Care 86 mg/dl (70-99)
[2024-12-20] MEDS: NOVOLOG FLEXPEN-LOW RESISTANCE SC ×2 (12:22→15:56)
--- NOTE | 2024-12-20 13:38 | W.PN.NEPH.PH ---
Today's Communication / Plan
-
HD tomorrow
Assessment/Plan
-
Assessment
ESRD
Anemia acute
Hypertension
hyperlipidemia
Diabetes mellitus type 2
Metabolic acidosis
homeless
Plan
Next dialysis tomorrow
Follow hemoglobin, transfuse as needed
Continue outpatient medications
Okay to continue Jardiance
Request records from [facility] pending
-
-
Date of Service: December 20, 2024
CC / HPI / ROS
-
Chief Complaint:
ESRD
History of Present Illness:
BP stable
Hgb low stable 7.3
K wnl
Review of Systems:
no CP/SOB
Labs
-
Labs:
WBC 7.9 10^3/uL (4.8-10.8) 12/20/24 06:33
RBC 2.39 10^6/uL (4.70-6.10) L 12/20/24 06:33
Hgb 7.3 g/dL (13.0-18.0) L 12/20/24 06:33
Hct 21.5 % (39.0-52.0) L 12/20/24 06:33
Plt Count 163 10^3/uL (130-400) 12/20/24 06:33
Sodium 137 mmol/L (135-145) 12/20/24 06:33
Potassium 5.0 mmol/L (3.5-5.1) 12/20/24 06:33
Chloride 106 mmol/L (98-107) 12/20/24 06:33
Carbon Dioxide 24 mmol/L (22-30) 12/20/24 06:33
BUN 76 mg/dl (9-20) H 12/20/24 06:33
Creatinine 5.0 mg/dL (0.7-1.3) H* 12/20/24 06:33
eGFR 12.49 12/20/24 06:33
Glucose 147 mg/dl (70-99) H 12/20/24 06:33
Calcium 7.3 mg/dl (8.4-10.2) L 12/20/24 06:33
Albumin 3.1 g/dl (3.5-5.0) L 12/20/24 06:33
Physical Exam
-
Vital Signs:
Vital Signs
Temp Pulse Resp BP Pulse Ox
98.2 F 90 18 146/70 100
12/20/24 07:00 12/20/24 07:00 12/20/24 07:00 12/20/24 07:00 12/20/24 07:00
Cardiovascular:: Regular rate and rhythm
Respiratory:: Bilateral: Coarse
Lung Excursion:: Normal
Abdomen:: Nontender and Soft
Bowel Sounds:: Normal
Extremity Edema:: None: Bilateral:
[2024-12-20 15:00] VITALS: BP 94/50
[2024-12-20 15:50] LABS: Glucose - Point of Care 144 mg/dl (70-99)
[2024-12-20 15:51] VITALS: BP 96/58
[2024-12-20 17:17] VITALS: BP 126/74
[2024-12-20] MEDS: TUMS CHEWABLE TABLET 200 MG PO (18:00)
[2024-12-20 21:32] LABS: Glucose - Point of Care 241 mg/dl (70-99)
[2024-12-20 23:30] VITALS: BP 122/58
[2024-12-21 05:50] VITALS: BMI 23.8
[2024-12-21 06:34] LABS: Hematocrit 21.6 % (39.0-52.0); Hemoglobin 7.3 g/dL (13.0-18.0); Mean Corp Hgb Conc. 33.8 g/dL (33.0-37.0); Mean Corpuscular Volume 89.6 fL (80.0-94.0); Platelet Count 166 10^3/uL (130-400); Red Cell Dist. Width 12.1 % (11.5-14.5)
[2024-12-21 07:02] LABS: Blood Urea Nitrogen 92 mg/dl (9-20); Calcium 7.9 mg/dl (8.4-10.2); Carbon Dioxide 23 mmol/L (22-30); Chloride 104 mmol/L (98-107); Estimated Creatinine Clearance 12 ml/min; Glucose 127 mg/dl (70-99); Potassium 5.4 mmol/L (3.5-5.1); Sodium 137 mmol/L (135-145); eGFR 10.04
--- NOTE | 2024-12-21 07:10 | W.PN.HOSP.TC ---
Today's Communication/Plan
-
Repeat stool heme occult test
Check B12, Folate and Ferritin
Dialysis today and patient received Retacrit
If Hgb same or better tomorrow and if stool heme occult test is negative, then will discharge patient tomorrow
Assessment / Plan
Assessment / Plan
Physical Exam
General: Well Developed, Well Nourished and No Apparent Distress
HEENT: Normocephalic, Moist mucous membranes and Atraumatic
Respiratory: Clear to Auscultation Bilaterally
Cardiac: S1/S2 and Regular Rhythm
GI: Soft, Non Tender, Non Distended and Normal Bowel Sounds
Musculoskeletal: No Cyanosis and No Edema
Skin: Warm. Dry.
Neuro: AAO x 3 and Nonfocal/grossly intact
Psych: Calm
Assessment/Plan
59-year-old male with history of HTN, HLD, IDDM, anemia, CHF, ESRD on dialysis presents from [facility] for low hemoglobin. Patient complained of headache and dizziness. He denied any chest pain, sob, fever, chills, cough, congestion.
He denied abdominal pain,n,v,d. He denied dysuria or hematuria. Patient usually gets iron infusion as well as Aranesp with Dialysis. upon arrival he was noted to have hgb of 6.7,. transfused with one unit of blood. admitting for further management.
#acute on chronic anemia likely from chronic kidney disease
# Iron deficiency anemia
-hgb 6.7, transfused with one one unit of blood on 12/18/24
-treg hgb in am
-stool heme negative, no blood in bowel movements
-Reticulocytes normal, LDH elevated
-Held Ferrous sulfate given high iron levels
-Minor chronic nosebleeds with significant Hgb drop -- unlikely -- will need outpatient ENT
-Consulted hematology since Hgb dropped again, evaluation for other etiologies besides ESRD given Hgb keeps dropping, appreciate hematology -- repeat stool heme occult, check anemia tests
#ESRD on dialysis
-dialysis M,W,F
-nephrology consulted
#History of CVA
- On Aspirin and Plavix
#Mild chronic epistaxis
-Outpatient follow-up
# Hyperlipidemia
- Atorvastatin continued
# Essential hypertension
# Chronic HFrEF
- Coreg, clonidine continued
- Furosemide continued, strict YAMILET, daily weight
- Losartan, nifedipine continued
# GERD
- PPI continued
# History of hyponatremia
- Sodium bicarb continue
# Type 2 diabetes mellitus
- Jardiance continued sliding scale, CHO diet
- Hold glipizide
#THEA
#hxt of suicidal
-no active thoughts
# DVT prophylaxis
-SCDs
# CODE STATUS
-Full code
Anticipated Discharge: Within 24 hours
Subjective/Interval History
-
Date of Service: December 21, 2024
Patient was seen and examined. He was getting dialysis and denied any new symptoms or complaints.
Objective Data
-
Labs:
Laboratory Results
12/21/24
06:14
WBC 6.6
Hgb 7.3 L
Hct 21.6 L
Plt Count 166
Sodium 137
Potassium 5.4 H
Chloride 104
Carbon Dioxide 23
BUN 92 H
Creatinine 6.0 H*
Glucose 127 H
Calcium 7.9 L
Vital Signs:
Vital Signs
Temp Pulse Resp BP Pulse Ox
98.5 F 77 20 122/58 100
12/20/24 23:30 12/20/24 23:30 12/20/24 23:30 12/20/24 23:30 12/20/24 23:30
I&O
12/20/24 12/21/24 12/22/24
05:59 06:59 06:59
Intake Total 2340 / 2340 1680 / 1680
Balance 2340 / 2340 1680 / 1680
[2024-12-21 07:48] VITALS: BP 172/89
[2024-12-21 08:38] LABS: Glucose - Point of Care 159 mg/dl (70-99)
[2024-12-21] MEDS: NOVOLOG FLEXPEN-LOW RESISTANCE 1 UNITS SC (08:38)
--- NOTE | 2024-12-21 09:18 | CON.ONC ---
Consultation
-
Date Consultation Requested: 12/21/24
Date Consultation Performed: 12/21/24
Requesting Provider: Dr. Cedric Aggarwal
Performing Provider: Dr. Augustina Wild
Reason for Consultation: anemia
Impression
Impression
AOCKD -baseline Hgb 7-8g/dL
CKD 5
Plan
Plan
Had been receiving JOSETTE every 2 weeks until start of HD then planned to receive iron and JOSETTE on HD protocol
f/u heme stool -if positive then consult GI
check ferritin, b12, folate, retic
transfuse Hgb <7 or as needed for sxs anemia
Patient History
History of Present Illness
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
59yo M with ESRD on HD presented from [facility] with anemia on outpatient labs. His initial evaluation was notable for a Hgb 6.7g/dL with a normal WBC, platelet count. He was admitted and transfused with 1U PRBC on 12/18.
In brief, Fabio was followed by Dr. Timmons for AOCKD with JOSETTE and iron support until he started HD then transitioned to JOSETTE and iron support on the HD protocol. His [facility] recent labs in the office September 2024 showed ferritin 781, IS 23, and hgb
8g/dL. His baseline Hgb is 7-8g/dL.
Clinically, he reports chronic fatigue, feeling cold, postural dizziness, and headaches. He reports mild occasional epistaxis from dry nose, otherwise, no overt bleeding. He denies fever, chills, sob at rest, n/v/d/c or abdominal pain.
Afebrile, no hypoxia.
Past-Medical/Surgical History
PMH CKD, CHF, Dm2, HTN, THEA, CV
PSH b/l cataract
Social former smoker
Family non-contributory
Patient Medication
�Medication �Instructions �Recorded �Confirmed �Last Taken �Type
acetaminophen 325 mg tablet 325 mg PO Q6H PRN pain 12/18/24 12/18/24 Unknown History
aspirin 81 mg chewable tablet 81 mg PO DAILY Blood Clot 12/18/24 12/18/24 Unknown History
Prevention/Tx
atorvastatin 40 mg tablet 40 mg PO DAILY High Cholesterol 12/18/24 12/18/24 Unknown History
carvedilol 25 mg tablet 25 mg PO BID Blood Pressure 12/18/24 12/18/24 Unknown History
clonidine HCl 0.2 mg tablet 0.2 mg PO DAILY Heart 12/18/24 12/18/24 Unknown History
Disease/Condition
clopidogrel 75 mg tablet 75 mg PO DAILY Blood Clot 12/18/24 12/18/24 Unknown History
Prevention/Tx
empagliflozin 10 mg tablet 10 mg PO DAILY Diabetes 12/18/24 12/18/24 Unknown History
(Jardiance)
ferrous sulfate 325 mg (65 mg 325 mg PO DAILY Supplement 12/18/24 12/18/24 Unknown History
iron) tablet
folic acid 1 mg tablet 1 mg PO DAILY Supplement 12/18/24 12/18/24 Unknown History
furosemide 20 mg tablet 20 mg PO DAILY Fluid 12/18/24 12/18/24 Unknown History
Retention/Swelling
glipizide 2.5 mg tablet 2.5 mg PO DAILY Diabetes 12/18/24 12/18/24 Unknown History
losartan 100 mg tablet 25 mg PO DAILY Blood Pressure 12/18/24 12/18/24 Unknown History
nifedipine 60 mg tablet,extended 60 mg PO BID Heart 12/18/24 12/18/24 Unknown History
release 24 hr Disease/Condition
pantoprazole 40 mg tablet,delayed 40 mg PO DAILY GERD 12/18/24 12/18/24 Unknown History
release
sodium bicarbonate 650 mg tablet 1,350 mg PO BID ALKALINIZER 12/18/24 12/18/24 Unknown History
sorbitol 70 % solution 30 ml PO DAILY PRN constipation 12/18/24 12/18/24 Unknown History
Active Medications
Generic Name Dose Route Start Last Admin
Trade Name Freq PRN Reason Stop Dose Admin
Acetaminophen 650 mg 12/19/24 02:25 12/20/24 09:36
Acetaminophen 325 Mg Tablet PO 01/16/25 02:24 650 mg
Q4HPRN PRN Administration
mild pain/DAVIS/temp> 100.4F
Albumin Human 12.5 grams 12/21/24 08:00
Albumin 12.5 Grams/50 Ml Bag *For Hemodialysis* IV 12/21/24 23:59
HD-Q1HPRN PRN
SBP < 90 mmHg
Aspirin 81 mg 12/19/24 08:00 12/20/24 09:35
Aspirin 81 Mg Chewable Tablet PO 01/16/25 07:59 81 mg
DAILY SYLVESTER Administration
Atorvastatin Calcium 40 mg 12/19/24 08:00 12/20/24 09:35
Atorvastatin (Lipitor) 40 Mg Tablet PO 01/16/25 07:59 40 mg
DAILY SYLVESTER Administration
Bisacodyl 10 mg 12/19/24 02:25
Bisacodyl 10 Mg Rectal Suppository RECTAL 01/16/25 02:24
[id number] PRN
constipation
Carvedilol 25 mg 12/19/24 08:00 12/20/24 20:22
Carvedilol 25 Mg Tablet PO 01/16/25 07:59 25 mg
BID SYLVESTER Administration
Clonidine HCl 0.2 mg 12/19/24 08:00 12/20/24 09:39
Clonidine 0.2 Mg Tablet PO 01/16/25 07:59 0.2 mg
DAILY SYLVESTER Administration
Clopidogrel Bisulfate 75 mg 12/19/24 08:00 12/20/24 09:35
Clopidogrel 75 Mg Tablet PO 01/16/25 07:59 75 mg
DAILY SYLVESTER Administration
Dapagliflozin 10 mg 12/19/24 08:00 12/20/24 09:35
Dapagliflozin (Farxiga) 10 Mg Tablet PO 01/16/25 07:59 10 mg
DAILY SYLVESTER Administration
Dextrose 12.5 grams 12/19/24 02:25
Dextrose 50% (0.5 Grams/Ml) 50 Ml Syringe IV 01/16/25 02:24
[id number] PRN
hypoglycemia
Protocol
Ferrous Sulfate 325 mg 12/19/24 08:00 12/20/24 09:36
Ferrous Sulfate 325 Mg Tablet PO 01/16/25 07:59 325 mg
On Hold: 12/20/24 17:55 DAILY SYLVESTER Administration
Folic Acid 1 mg 12/19/24 08:00 12/20/24 09:35
Folic Acid 1 Mg Tablet PO 01/16/25 07:59 1 mg
DAILY SYLVESTER Administration
Furosemide 20 mg 12/19/24 08:00 12/20/24 09:36
Furosemide 20 Mg Tablet PO 01/16/25 07:59 20 mg
DAILY SYLVESTER Administration
Glucagon 1 mg 12/19/24 02:25
Glucagon 1 Mg Vial IM 01/16/25 02:24
PRN PRN
hypoglycemia
Protocol
Insulin Aspart 0 units 12/19/24 07:30 12/21/24 08:38
Insulin Aspart Low Resistance 300 Units/3 Ml Pen.Injctr SC 01/16/25 07:29 1 units
AC SYLVESTER Administration
Protocol
Losartan Potassium 25 mg 12/19/24 08:00 12/20/24 09:39
Losartan 25 Mg Tablet PO 01/16/25 07:59 25 mg
DAILY SYLVESTER Administration
Mannitol 12.5 grams 12/21/24 08:00
Mannitol 25% (12.5 Grams/50 Ml) Vial IV 12/21/24 23:59
HD-Q1HPRN PRN
SBP < 90 mmHg
Nifedipine 60 mg 12/19/24 08:00 12/20/24 20:23
Nifedipine 60 Mg Extended Release Tablet PO 01/16/25 07:59 60 mg
BID SYLVESTER Administration
Pantoprazole Sodium 40 mg 12/19/24 08:00 12/20/24 09:35
Pantoprazole 40 Mg Delayed Release Tablet PO 01/16/25 07:59 40 mg
DAILY SYLVESTER Administration
Polyethylene Glycol 17 grams 12/19/24 02:25
Polyethylene Glycol Powder 17 Grams Packet PO 01/16/25 02:24
DAILYPRN PRN
constipation
Senna/Docusate Sodium 1 tablet 12/19/24 02:25
Docusate W/Senna (Rossana-Colace) Tablet PO 01/16/25 02:24
BIDPRN PRN
constipation
Sodium Bicarbonate 1,300 mg 12/19/24 22:15 12/20/24 20:23
Sodium Bicarbonate 650 Mg Tablet PO 01/16/25 07:59 1,300 mg
BID SYLVESTER Administration
Sodium Chloride 0 flush 12/19/24 03:00
Sodium Chloride 0.9% (Flush) Syringe IV 01/16/25 02:59
PER PROTOCOL SYLVESTER
Sodium Chloride 10 ml 12/21/24 08:00
Sodium Chloride (4 Meq/Ml) 30 Ml Vial *For Hemodialysis* IV 12/21/24 23:59
HD-Q1HPRN PRN
cramps
Review of Systems
-
ROS is notable for HPI, otherwise negative
Physical Exam
-
AVF LUE with edgar dressing
General: No Apparent Distress
HEENT: Moist Mucous Membranes; Negative Jaundice
Pulmonary: Clear
GI: Soft
Extremities: Pulses Present; Negative Edema
Neurology: Non Focal
Skin: Warm
Psych: Calm
Labs
Lab Results
WBC 6.6 10^3/uL (4.8-10.8) 12/21/24 06:14
RBC 2.41 10^6/uL (4.70-6.10) L 12/21/24 06:14
Hgb 7.3 g/dL (13.0-18.0) L 12/21/24 06:14
Hct 21.6 % (39.0-52.0) L 12/21/24 06:14
MCV 89.6 fL (80.0-94.0) 12/21/24 06:14
MCH 30.3 pg (27.0-31.0) 12/21/24 06:14
MCHC 33.8 g/dL (33.0-37.0) 12/21/24 06:14
RDW 12.1 % (11.5-14.5) 12/21/24 06:14
Plt Count 166 10^3/uL (130-400) 12/21/24 06:14
MPV 9.6 fL (7.4-10.4) 12/21/24 06:14
Abs Immat Gran (auto) 0.0 10^3/uL (0-0.05) 12/18/24 21:49
Absolute Neuts (auto) 3.9 10^3/uL (1.4-6.5) 12/18/24 21:49
Absolute Lymphs (auto) 1.3 10^3/uL (1.2-3.4) 12/18/24 21:49
Absolute Monos (auto) 0.4 10^3/uL (0.1-0.6) 12/18/24 21:49
Absolute Eos (auto) 0.4 10^3/uL (0-0.7) 12/18/24 21:49
Absolute Basos (auto) 0.0 10^3/uL (0-0.2) 12/18/24 21:49
Immature Gran % 0.3 % (0-0.5) 12/18/24 21:49
Neutrophils % 64.3 % (42.2-75.2) 12/18/24 21:49
Lymphocytes % 20.9 % (20.5-51.1) 12/18/24 21:49
Monocytes % 7.2 % (1.7-9.3) 12/18/24 21:49
Eosinophils % 6.8 % (0-6) H 12/18/24 21:49
Basophils % 0.5 % (0-2) 12/18/24 21:49
Creatinine 6.0 mg/dL (0.7-1.3) H* 12/21/24 06:14
Vital Signs
Vital Signs
Temp Pulse Resp BP Pulse Ox
98.1 F 82 17 172/89 98
12/21/24 07:48 12/21/24 07:48 12/21/24 07:48 12/21/24 07:48 12/21/24 07:48
[2024-12-21] MEDS: RETACRIT 10000 UNITS IV (09:32)
[2024-12-21 11:57] LABS: Glucose - Point of Care 140 mg/dl (70-99)
[2024-12-21] MEDS: PROTONIX 40 MG PO (11:57)
[2024-12-21] MEDS: PROCARDIA XL (EXTENDED RELEASE) 60 MG PO ×2 (11:57→21:00)
[2024-12-21] MEDS: LIPITOR 40 MG PO (12:01)
[2024-12-21] MEDS: COZAAR 25 MG PO (12:01)
[2024-12-21] MEDS: CATAPRES 0.2 MG PO (12:02)
[2024-12-21] MEDS: LOW STRENGTH ASPIRIN 81 MG PO (12:02)
[2024-12-21] MEDS: COREG 25 MG PO ×2 (12:02→21:00)
[2024-12-21] MEDS: FOLVITE 1 MG PO (12:02)
[2024-12-21] MEDS: SODIUM BICARBONATE 1300 MG PO ×2 (12:02→21:00)
[2024-12-21] MEDS: LASIX 20 MG PO (12:02)
[2024-12-21] MEDS: FARXIGA 10 MG PO (12:02)
[2024-12-21] MEDS: PLAVIX 75 MG PO (12:03)
--- NOTE | 2024-12-21 12:07 | PTCARENOTE ---
All morning medications given late, at 1200, due to pt being on dialysis, per dialysis nurse instruction.
[2024-12-21] MEDS: NOVOLOG FLEXPEN-LOW RESISTANCE SC (12:21)
--- NOTE | 2024-12-21 12:23 | W.PN.NEPH.HD ---
Assessment
-
Tolerating dialysis
Progress Note - Hemodialysis
-
Date of Service: December 21, 2024
Duration: 30 minutes and 3 hours
Calcium Bath: 2.5
Opti-Dialyzer: 160
Ultrafiltration: EDW
Blood Flow: 350
Dialysate Flow: 600
--- NOTE | 2024-12-21 14:30 | CM ---
Addendum entered by Noreen Reece 12/21/24 16:29:
Dr. Dahl wants to wait on discharge until tomorrow. [facility] Packing Line Operator notified.
Original Note:
DANILO spoke with Gladys, Packing Line Operator from [place] in [place]. I advised her that he is ready for discharge and pt is accepted back to [facility] today.
[facility] report: [phone] [phone]
[facility]
[2024-12-21 14:58] LABS: Reticulocyte Count 1.4 % (0.4-2.8)
[2024-12-21 16:05] VITALS: BP 137/67
[2024-12-21 16:28] LABS: Ferritin 527.0 ng/ml (17.9-464.0)
[2024-12-21 16:52] LABS: Glucose - Point of Care 238 mg/dl (70-99)
[2024-12-21 16:59] LABS: Folate > 20.0 ng/ml (2.76-20); Vitamin B12 496 pg/ml (239-931)
[2024-12-21] MEDS: NOVOLOG FLEXPEN-LOW RESISTANCE 2 UNITS SC (17:38)
[2024-12-21 21:39] VITALS: BP 174/87
[2024-12-21 22:07] LABS: Glucose - Point of Care 189 mg/dl (70-99)
[2024-12-21 23:22] VITALS: BP 129/64
[2024-12-22 06:00] VITALS: BMI 22.9
[2024-12-22 06:23] LABS: Hematocrit 22.5 % (39.0-52.0); Hemoglobin 7.5 g/dL (13.0-18.0); Mean Corp Hgb Conc. 33.3 g/dL (33.0-37.0); Mean Corpuscular Volume 92.2 fL (80.0-94.0); Platelet Count 176 10^3/uL (130-400); Red Cell Dist. Width 12.0 % (11.5-14.5)
[2024-12-22 06:51] LABS: Blood Urea Nitrogen 51 mg/dl (9-20); Calcium 7.6 mg/dl (8.4-10.2); Carbon Dioxide 28 mmol/L (22-30); Chloride 101 mmol/L (98-107); Estimated Creatinine Clearance 18 ml/min; Glucose 159 mg/dl (70-99); Potassium 4.7 mmol/L (3.5-5.1); Sodium 135 mmol/L (135-145); eGFR 16.32
[2024-12-22 07:20] VITALS: BP 169/81
[2024-12-22 07:37] LABS: Glucose - Point of Care 183 mg/dl (70-99)
[2024-12-22] MEDS: FOLVITE 1 MG PO (07:37)
[2024-12-22] MEDS: LASIX 20 MG PO (07:37)
[2024-12-22] MEDS: PLAVIX 75 MG PO (07:37)
[2024-12-22] MEDS: FARXIGA 10 MG PO (07:37)
[2024-12-22] MEDS: LIPITOR 40 MG PO (07:37)
[2024-12-22] MEDS: LOW STRENGTH ASPIRIN 81 MG PO (07:37)
[2024-12-22] MEDS: PROTONIX 40 MG PO (07:37)
[2024-12-22] MEDS: COREG 25 MG PO (07:38)
[2024-12-22] MEDS: PROCARDIA XL (EXTENDED RELEASE) 60 MG PO (07:39)
[2024-12-22] MEDS: CATAPRES 0.2 MG PO (07:42)
[2024-12-22] MEDS: SODIUM BICARBONATE 1300 MG PO (07:42)
[2024-12-22] MEDS: COZAAR 25 MG PO (07:42)
--- NOTE | 2024-12-22 07:56 | W.PN.HOSP.TC ---
Today's Communication/Plan
-
Discharge today
Assessment / Plan
Assessment / Plan
Physical Exam
General: Well Developed, Well Nourished and No Apparent Distress
HEENT: Normocephalic, Moist mucous membranes and Atraumatic
Respiratory: Clear to Auscultation Bilaterally
Cardiac: S1/S2 and Regular Rhythm
GI: Soft, Non Tender, Non Distended and Normal Bowel Sounds
Musculoskeletal: No Cyanosis and No Edema
Skin: Warm. Dry.
Neuro: AAO x 3 and Nonfocal/grossly intact
Psych: Calm
Assessment/Plan
59-year-old male with history of HTN, HLD, IDDM, anemia, CHF, ESRD on dialysis presents from [facility] for low hemoglobin. Patient complained of headache and dizziness. He denied any chest pain, sob, fever, chills, cough, congestion.
He denied abdominal pain,n,v,d. He denied dysuria or hematuria. Patient usually gets iron infusion as well as Aranesp with Dialysis. upon arrival he was noted to have hgb of 6.7,. transfused with one unit of blood. admitting for further management.
#acute on chronic anemia likely from chronic kidney disease
# Iron deficiency anemia
-hgb 6.7, transfused with one one unit of blood on 12/18/24
-treg hgb in am
-stool heme negative, no blood in bowel movements
-Reticulocytes normal, LDH elevated
-Held Ferrous sulfate given high iron levels
-Minor chronic nosebleeds with significant Hgb drop -- unlikely -- will need outpatient ENT
-Consulted hematology since Hgb dropped again, evaluation for other etiologies besides ESRD given Hgb keeps dropping, appreciate hematology -- checked anemia tests
#ESRD on dialysis
-dialysis M,W,F
-nephrology consulted
#History of CVA
- On Aspirin and Plavix
#Mild chronic epistaxis
-Outpatient follow-up
# Hyperlipidemia
- Atorvastatin continued
# Essential hypertension
# Chronic HFrEF
- Coreg, clonidine continued
- Furosemide continued, strict YAMILET, daily weight
- Losartan, nifedipine continued
# GERD
- PPI continued
# History of hyponatremia
- Sodium bicarb continue
# Type 2 diabetes mellitus
- Jardiance continued sliding scale, CHO diet
- Hold glipizide
#THEA
#hxt of suicidal
-no active thoughts
# DVT prophylaxis
-SCDs
# CODE STATUS
-Full code
More than 30 minutes spent in discharge including
Final examination of the patient
Summarizing hospital stay
Instructions for continuing care to all relevant caregivers
Preparation of discharge records, prescriptions, and referral forms
Total time spent (in minutes): 36
Anticipated Discharge: Today
Subjective/Interval History
-
Date of Service: December 22, 2024
Patient was seen and examined. He denied any new symptoms or complaints, he is ready go to home today.
Objective Data
-
Labs:
Laboratory Results
12/22/24
05:56
WBC 6.6
Hgb 7.5 L
Hct 22.5 L
Plt Count 176
Sodium 135
Potassium 4.7
Chloride 101
Carbon Dioxide 28
BUN 51 H
Creatinine 4.0 H
Glucose 159 H
Calcium 7.6 L
Vital Signs:
Vital Signs
Temp Pulse Resp BP Pulse Ox
98.3 F 88 16 169/81 97
12/22/24 07:20 12/22/24 07:38 12/22/24 07:20 12/22/24 07:38 12/22/24 07:20
I&O
12/21/24 12/22/24 12/23/24
06:59 06:59 06:59
Intake Total 1680 / 1680 1650 / 1650
Balance 1680 / 1680 165 / 165
[2024-12-22 08:26] LABS: Albumin 3.1 g/dl (3.5-5.0)
[2024-12-22] MEDS: NOVOLOG FLEXPEN-LOW RESISTANCE 1 UNITS SC ×2 (08:47→12:35)
[2024-12-22 11:51] LABS: Glucose - Point of Care 168 mg/dl (70-99)
--- NOTE | 2024-12-22 14:09 | W.PN.NEPH.PH ---
Today's Communication / Plan
-
Okay for discharge from renal no acute this is needed today
Assessment/Plan
-
Assessment
ESRD
Anemia acute
Hypertension
hyperlipidemia
Diabetes mellitus type 2
Metabolic acidosis
homeless
Plan
Next dialysis tomorrow
Follow hemoglobin, transfuse as needed
Continue outpatient medications
Okay for discharge from renal
-
-
Date of Service: December 22, 2024
CC / HPI / ROS
-
Chief Complaint:
ESRD
History of Present Illness:
BP stable
Hgb low stable 7.3
K wnl
Review of Systems:
no CP/SOB
Labs
-
Labs:
WBC 6.6 10^3/uL (4.8-10.8) 12/22/24 05:56
RBC 2.44 10^6/uL (4.70-6.10) L 12/22/24 05:56
Hgb 7.5 g/dL (13.0-18.0) L 12/22/24 05:56
Hct 22.5 % (39.0-52.0) L 12/22/24 05:56
Plt Count 176 10^3/uL (130-400) 12/22/24 05:56
Sodium 135 mmol/L (135-145) 12/22/24 05:56
Potassium 4.7 mmol/L (3.5-5.1) 12/22/24 05:56
Chloride 101 mmol/L (98-107) 12/22/24 05:56
Carbon Dioxide 28 mmol/L (22-30) 12/22/24 05:56
BUN 51 mg/dl (9-20) H 12/22/24 05:56
Creatinine 4.0 mg/dL (0.7-1.3) H 12/22/24 05:56
eGFR 16.32 12/22/24 05:56
Glucose 159 mg/dl (70-99) H 12/22/24 05:56
Calcium 7.6 mg/dl (8.4-10.2) L 12/22/24 05:56
Albumin 3.1 g/dl (3.5-5.0) L 12/22/24 05:56
Physical Exam
-
Vital Signs:
Vital Signs
Temp Pulse Resp BP Pulse Ox
98.3 F 88 16 169/81 97
12/22/24 07:20 12/22/24 07:38 12/22/24 07:20 12/22/24 07:38 12/22/24 07:20
Cardiovascular:: Regular rate and rhythm
Respiratory:: Bilateral: Coarse
Lung Excursion:: Normal
Abdomen:: Nontender and Soft
Bowel Sounds:: Normal
Extremity Edema:: None: Bilateral:
--- NOTE | 2024-12-22 14:47 | CM ---
DANILO spoke with Gladys, [employer] from [place] in [place]. I advised her that he is ready for discharge and pt is accepted back to [facility] today.
[facility] report: [phone]
[facility]
--- NOTE | 2024-12-22 15:12 | CM ---
CM attempted to contact pt's mother, however the phone number listed is not in service.
[facility] certified novell administrator notified of plan for discharge back to [facility] today. Ambulance transport requested.
Plan: Discharge to [facility] today.
[facility] report: [phone]
[facility]
[2024-12-22 16:00] VITALS: BP 135/66
[2024-12-22 18:23] LABS: Glucose - Point of Care 299 mg/dl (70-99)
[2024-12-22] MEDS: NOVOLOG FLEXPEN-LOW RESISTANCE 3 UNITS SC (18:47)
== END 2024-12-22 19:11 | DRG 291 ==
LOC: 3 WEST ACU 23:22
PROVIDERS: Internal Medicine Nephrology; Registered Nurse; ADMITTING PHYSICIAN Hospitalist; ATTENDING PHYSICIAN Hospitalist; CONSULT PHYSICIAN Specialist; EMERGENCY PHYSICIAN Emergency Medicine; FAMILY PHYSICIAN Internal Medicine; OTHER PHYSICIAN Internal Medicine Hematology & Oncology
PROC: 30233N1 Transfusion of Nonautologous Red Blood Cells into Peripheral Vein, Percutaneous Approach (ICD-10-PCS; 2024-12-18)
PROC: 5A1D70Z Performance of Urinary Filtration, Intermittent, Less than 6 Hours Per Day (ICD-10-PCS; 2024-12-21)
DX: I13.2 Hypertensive heart and chronic kidney disease with heart failure and with stage 5 chronic kidney disease, or end stage renal disease (principal); N18.6 End stage renal disease; E87.20 Acidosis, unspecified; Z59.00 Homelessness unspecified; D63.1 Anemia in chronic kidney disease; I50.22 Chronic systolic (congestive) heart failure; D50.9 Iron deficiency anemia, unspecified; I25.10 Atherosclerotic heart disease of native coronary artery without angina pectoris; Z86.73 Personal history of transient ischemic attack (TIA), and cerebral infarction without residual deficits; E11.22 Type 2 diabetes mellitus with diabetic chronic kidney disease; E11.649 Type 2 diabetes mellitus with hypoglycemia without coma; G47.33 Obstructive sleep apnea (adult) (pediatric); Z87.891 Personal history of nicotine dependence; K21.9 Gastro-esophageal reflux disease without esophagitis; Z79.02 Long term (current) use of antithrombotics/antiplatelets; Z79.4 Long term (current) use of insulin; Z79.82 Long term (current) use of aspirin; Z79.899 Other long term (current) drug therapy; Z99.2 Dependence on renal dialysis
CPT/HCPCS: 36430; 80048; 80053; 82040; 82607; 82728; 82746; 82962; 83036; 83540; 83550; 83615; 85025; 85027; 85045; 86850; 86900; 86901; 86920; 87070; 99285; G0257; P9016; P9047; Q5106

== ENCOUNTER 2025-01-26 19:05 | Emergency (ER) | payer OTHER, SELFPAY ==
[2025-01-26] VITALS (10 sets, daily range): BP systolic 125–159; BP diastolic 56–65; BMI 26.0
--- NOTE | 2025-01-26 19:12 | ED.GENMED ---
History of Present Illness
General
Chief Complaint: Abnormal Lab Value
Time Seen by Provider: 01/26/25 19:12
History of Present Illness
History of Present Illness:
FOCUSED PAST MEDICAL HISTORY
- High blood pressure, CHF, ESRD on HD, hyperlipidemia, diabetes, anemia
REVIEW OF OLD RECORDS
- The patient was admitted here 12/18 through 12/22/2024 related to anemia and had a unit of blood.
- Outpatient labs that EMS brought in showed a hemoglobin of 6.6
Note:
CHIEF COMPLAINT(S)
Anemia requiring blood transfusion.
HISTORY OF PRESENT ILLNESS
The patient is a 59-year-old male with a history of chronic kidney disease on dialysis. He presents with severe anemia, requiring intervention. Approximately one month ago, the patient was hospitalized and received a blood transfusion, as indicated
by the review of prior records. He does not recall details of the admission. During the current evaluation, his hemoglobin level was noted to be critically low at 6.7 g/dL. The patient exhibits general weakness and debilitation, with limited insight
and judgment. He appears somewhat pale.
ADDITIONAL HISTORY OBTAINED FROM SOURCES OTHER THAN THE PATIENT
The information was corroborated and supplemented from previous medical records due to the patients limited recall.
EXTERNAL RECORDS REVIEWED
External records from a previous hospitalization approximately one month ago were reviewed, confirming the patient received a blood transfusion at that time.
CHRONIC MEDICAL CONDITIONS SIGNIFICANTLY AFFECTING CARE
Chronic kidney disease on dialysis.
PHYSICAL EXAM
General: Appears generally weak and debilitated.
Skin: Pale, warm, dry.
Head: Normocephalic, atraumatic.
Neck: Supple, trachea midline.
Eye, Ears, Nose, Mouth, and Throat: Oral mucosa moist.
Cardiovascular: Normal peripheral perfusion, No edema.
Respiratory: Respirations are non-labored.
Gastrointestinal: Abdomen nondistended.
Back: Normal range of motion, Normal alignment.
Musculoskeletal: Normal range of motion, normal strength.
Neurological: Cognitive deficits, moves all extremities weakly
Psychiatric: Cooperative but has limited insight and judgment.
PROBLEM LIST
Acute Problems:
- Anemia requiring blood transfusion.
- Generalized weakness and debilitation.
Chronic Problems:
- Chronic kidney disease on dialysis.
PLAN
1. Administer blood transfusion to address severe anemia.
2. Monitor hemoglobin levels post-transfusion.
3. Continued dialysis management.
4. Ensure the patient understands the procedure and obtain informed consent for the transfusion.
DIFFERENTIAL DIAGNOSIS
The Differential Diagnosis includes, in no particular order and is not limited to:
- Severe anemia secondary to chronic kidney disease
- Acute anemia from gastrointestinal bleeding
- Bone marrow suppression or dysfunction
- Nutritional deficiency anemia (e.g., iron, vitamin B12, folate)
- Hemolytic anemia
- Anemia of chronic disease
- Infection-related anemia
- Medication-induced anemia
- Blood loss anemia (e.g., trauma, internal bleeding)
- Myelodysplastic syndrome.
SUMMARY OF ENCOUNTER
The patient, a 59-year-old male with a history of chronic kidney disease on dialysis, presented to the emergency department with severe anemia requiring intervention. On evaluation, the patients hemoglobin level was critically low at 6.7 g/dL. The
patient exhibited general weakness and debilitation. A blood transfusion was needed to address the registered anemia.
DISPOSITION
Plan discharge after one unit of blood transfusion.
MANAGEMENT OF THE PATIENTS CARE WAS DISCUSSED WITH
I discussed the case with nephrology, who mentioned they are not the patients usual network solutions architect.
PLAN
Administer one unit of blood to manage severe anemia and plan for discharge once transfusion is complete.
INDEPENDENT REVIEW OF LABS AND INTERPRETATION OF TESTS
My independent review of the CBC is a hemoglobin level of 6.7 g/dL, indicating severe anemia.
MEDICAL DECISION MAKING
- Number and Complexity of Problems Addressed: Chronic conditions affecting care: Chronic kidney disease on dialysis, Anemia.
- DDx list: Severe anemia secondary to chronic kidney disease, Acute anemia from gastrointestinal bleeding, Bone marrow suppression or dysfunction, Nutritional deficiency anemia, Hemolytic anemia, Anemia of chronic disease, Infection-related anemia,
Medication-induced anemia, Blood loss anemia, Myelodysplastic syndrome.
- Data:
Category 1: Non-emergency department records reviewed. External records reviewed confirming past blood transfusion.
Category 2: Clinical information was obtained from an independent historian due to patients limited recall.
- Risk: Prescription medication management with blood transfusion and monitoring for complications associated with severe anemia and dialysis-dependent chronic kidney disease respectively.
LABS
- Hemoglobin 6.7
UPDATE
- The patient has no significant new complaints and reportedly was just sent here due to the hemoglobin being low. This is very similar presentation as last month and at that time it was documented that he had a heme-negative stool. Hemoglobin
from last year was 7.5.
- Will discharge after 1 unit of blood
Past History
Past History
ED Past Medical History: CHF, GERD, HTN, Hypercholesterolemia, NIDDM, Renal failure (ESRD on dialysis M-W-F) and Other (Anemia)
ED Past Surgical History: Other (Dialysis catheter left upper)
Phy Exam
Physical Exam
Physical Exam:
See HPI
Course
Orders/Labs/Results
Orders:
Orders
01/26/25 19:28
Complete Blood Count/With Diff Urgent
Comprehensive Metabolic Panel Urgent
Ferritin Urgent
Iron Urgent
TIBC [Total Iron Binding] Urgent
01/26/25 19:47
* Blood Bank Products Urgent
Blood Bank Products: *Packed RBC Leuko (PRBC's
Quantity: 1
Transfuse Today: Yes
Reason: Anemia
01/26/25 20:24
Type+Screen Urgent
BBK Wristband Number:
Abnormal Lab Results
01/26/25 01/26/25
19:28 20:24
RBC 2.12 L 10^6/uL
(4.70-6.10)
Hgb 6.7 L* g/dL
(13.0-18.0)
Hct 19.6 L* %
(39.0-52.0)
MCH 31.6 H pg
(27.0-31.0)
Sodium 131 L mmol/L
(135-145)
BUN 50 H mg/dl
(9-20)
Creatinine 5.4 H* mg/dL
(0.7-1.3)
Glucose 217 H mg/dl
(70-99)
Calcium 7.8 L mg/dl
(8.4-10.2)
TIBC 182 L ug/dl
(261-462)
Ferritin 809.0 H ng/ml
(17.9-464.0)
Total Protein 5.7 L g/dl
(6.3-8.2)
Albumin 3.0 L g/dl
(3.5-5.0)
Crossmatch IS Only See Detail
01/26/25 19:28
01/26/25 19:28
Vital Signs
Initial and Last Documented VS:
Initial Vital Signs
Temp Pulse Resp BP Pulse Ox
36.7 C 75 20 142/65 96
01/26/25 19:07 01/26/25 19:07 01/26/25 19:07 01/26/25 19:07 01/26/25 19:07
Last Documented Vital Signs
Temp Pulse Resp BP Pulse Ox
36.6 C 73 20 150/57 96
01/26/25 21:43 01/26/25 21:43 01/26/25 21:43 01/26/25 21:43 01/26/25 21:43
*Pulse Oximetry
Patient hypoxic: no
*Critical Care Note
Total Time (30-74mins, 75-104mins- exclusive of procedures): Not Applicable
ED Attending Note
-
Portions of this chart may have been created with voice recognition software.� Occasional wrong word or��sound alike� substitutions may have occurred due to the inherent limitations of voice recognition software.
Discharge Plan
Departure
Patient Disposition: Home (Routine Discharge)
Date of Disposition: 01/26/25
Time of Disposition: 21:04
Patient with high blood pressure during this ER visit?: Yes
Discharge Problem:
Acute on chronic anemia
Instructions: Anemia of inflammation (anemia of chronic disease), BLOOD PRESSURE
Prescriptions:
No Action
atorvastatin 40 mg tablet
40 mg PO DAILY
carvedilol 25 mg tablet
25 mg PO BID
acetaminophen 325 mg tablet
325 mg PO Q6H PRN (Reason: pain)
clopidogrel 75 mg tablet
75 mg PO DAILY
clonidine HCl 0.2 mg tablet
0.2 mg PO DAILY
nifedipine 60 mg tablet extended release 24hr
60 mg PO BID
sodium bicarbonate 650 mg Tablet
1,350 mg PO BID
pantoprazole 40 mg tablet,delayed release (DR/EC)
40 mg PO DAILY
aspirin 81 mg Tablet,Chewable
81 mg PO DAILY
folic acid 1 mg tablet
1 mg PO DAILY
furosemide 20 mg tablet
20 mg PO DAILY
losartan 100 mg tablet
25 mg PO DAILY
sorbitol 70 % Solution
30 ml PO DAILY PRN (Reason: constipation)
Jardiance 10 mg tablet
10 mg PO DAILY
Referrals:
UNKNOWN - PT DOES,NOT KNOW [Unknown Provider]
Activity Restrictions/Additional Instructions:
Hemoglobin here is 6.7. I have ordered 1 unit of blood. Return if worse or other concerns.
Interventions
Interventions:
*Risk Screen - Suicide Last Done: 01/26/25 19:16
*General Assessment Last Done: 01/26/25 19:31
*Neglect/Abuse Screening Last Done: 01/26/25 19:16
*ED COVID-19 Vaccine History Last Done: 01/26/25 19:16
*ED Influenza Vaccine History Last Done: 01/26/25 19:16
[facility] Fall Risk Assessment Tool Last Done: 01/26/25 19:31
Discharge Date and Time
Print Language: GABONESE
[2025-01-26 19:38] LABS: Hematocrit 19.6 % (39.0-52.0); Hemoglobin 6.7 g/dL (13.0-18.0); Mean Corp Hgb Conc. 34.2 g/dL (33.0-37.0); Mean Corpuscular Volume 92.5 fL (80.0-94.0); Nucleated Red Blood Cells % 0 % (-); Platelet Count 172 10^3/uL (130-400); Red Cell Dist. Width 13.5 % (11.5-14.5)
[2025-01-26 20:09] LABS: ALT (SGPT) 13 U/L (0-50); AST (SGOT) 21 U/L (17-59); Albumin 3.0 g/dl (3.5-5.0); Alkaline Phosphatase 60 U/L (38-126); Blood Urea Nitrogen 50 mg/dl (9-20); Calcium 7.8 mg/dl (8.4-10.2); Carbon Dioxide 28 mmol/L (22-30); Chloride 100 mmol/L (98-107); Estimated Creatinine Clearance 14 ml/min; Glucose 217 mg/dl (70-99); Iron 71 ug/dl (49-181); Potassium 4.4 mmol/L (3.5-5.1); Sodium 131 mmol/L (135-145); Total Protein 5.7 g/dl (6.3-8.2); eGFR 11.39
[2025-01-26 20:18] LABS: Total Iron Binding Capacity 182 ug/dl (261-462)
[2025-01-26 20:41] LABS: Ferritin 809.0 ng/ml (17.9-464.0)
[2025-01-27] VITALS: BP 169/68
== END 2025-01-27 00:13 ==
LOC: EMR 19:05
PROVIDERS: EMERGENCY PHYSICIAN Emergency Medicine; FAMILY PHYSICIAN Internal Medicine
DX: E11.22 Type 2 diabetes mellitus with diabetic chronic kidney disease (principal); D63.1 Anemia in chronic kidney disease; I13.2 Hypertensive heart and chronic kidney disease with heart failure and with stage 5 chronic kidney disease, or end stage renal disease; I50.9 Heart failure, unspecified; N18.6 End stage renal disease; E78.00 Pure hypercholesterolemia, unspecified; Z99.2 Dependence on renal dialysis
CPT/HCPCS: 36430; 99285; 80053; 82728; 83540; 83550; 85025; 86850; 86900; 86901; 86920; P9016